=== PATIENT | female | born 1975 | race Caucasian/White ===

== ENCOUNTER → 2016-11-27 | Outpatient (CLI) | payer OTHER ==
--- NOTE | 2016-11-27 16:36 | US ---
EXAMINATION: Ultrasound-guided fine-needle aspiration of a subcutaneous scalp lesion. HISTORY: Cyst COMPARISON: None TECHNIQUE: The procedure, risks, and benefits were discussed with the patient. Informed consent was obtained. Within the region of concern there is an oval 1 x 0.5 cm immediately subcutaneous hypoecho ic nodule. This is heterogeneous in appearance and demonstrates posterior acoustic enhancement and l ikely represents a complex cyst. The overlying area was sterilely prepped with ChloraPrep. 1% lidoca ine was administered for local anesthesia. Using ultrasound guidance the nodule was attempted to be aspirated with an 18-gauge needle. No fluid was returned. Ultrasound-guided fine-needle aspiration w as performed obtaining 4 samples. These were fixed slight. The patient tolerated the procedure well. IMPRESSION: Successful ultrasound-guided fine-needle aspiration of a small scalp lesion, likely a co mplex cyst.
== END ==
LOC: MW.US 08:56
PROVIDERS: ATTEND Surgery
DX: R22.0 Localized swelling, mass and lump, head (principal); L72.9 Follicular cyst of the skin and subcutaneous tissue, unspecified
CPT/HCPCS: 10022; 76536-RT; 76942-26-RT; 76942-RT; 88173

== ENCOUNTER 2017-03-06 12:02 | Emergency (ER) | payer OTHER, MEDICARE ==
--- NOTE | 2017-03-06 12:45 | EDM.PDOC ---
ED HPI GENERAL MEDICAL PROBLEM - General Chief Complaint: Lower Extremity Injury/Pain Stated Complaint: PAIN IN LEFT LEG Time Seen by Provider: 03/06/17 12:40 Source of Information: Reports: Patient History Limitations: Reports: No Limitations - History of Present Illness INITIAL COMMENTS - FREE TEXT/NARRATIVE: HISTORY AND PHYSICAL: History of present illness: [Presents to the ER with complaints of Left upper anterior leg pain. She feels that the pain is just distal to the L inguinal fold. She was evaluated in the residency clinic yesterday at which time she had a hip and femur x-ray with normal results. Was told that a mass was palpated in her inguinal area and that a CT scan should be scheduled which has yet to be set up. Pain has been present for the past 6 weeks but has gradually worsened over the past 3 days. She comes to the emergency room for CT scan and reevaluation. She describes the pain as a sharp nerve nerve pain that moves down her inner thigh. No weakness to her legs , no new low back pain. No burning with urination or change in her bowels. Denies new abdominal pain. No genital or rectal lesions. She has a complicated history including colorectal cancer with metastasis. She follows regularly with Dr. Parisi and oncologist. ] Review of systems: As per history of present illness and below otherwise all systems reviewed and negative. Past medical history: As per history of present illness and as reviewed below otherwise noncontributory. Surgical history: As per history of present illness and as reviewed below otherwise noncontributory. Social history: No reported history of drug or alcohol abuse. Family history: As per history of present illness and as reviewed below otherwise noncontributory. Physical exam: HEENT: Atraumatic, normocephalic. Oral mucous members are pink and moist. Lungs: Clear to auscultation, breath sounds equal bilaterally. Power port present to left anterior chest. Heart: S1S2, regular rhythm. Abdomen: Soft, nondistended, nontender. Pelvis: Stable nontender. Genitourinary: Deferred. Rectal: Deferred. Skin: Erythematous yeast-like rash to left abdominal fold. No weeping. Extremities: Soft mass is palpated just distal to left inguinal fold. Difficult to differentiate if this is lymphadenopathy or other soft mass. Right inguinal area shows no masses or lymphadenopathy. Atraumatic, negative for cords or calf pain. Neurovascular unremarkable. Neuro: Awake, alert, oriented. Motor and sensory unremarkable throughout. Exam nonfocal. Psych: Pleasant, conversational. Diagnostics: [CT abdomen and pelvis w/ contrast] Therapeutics: [MS 2 mg IV x 2, morphine 4 mg IV] Impression: [Mass to left upper thigh Left upper leg pain] Plan: [The first dose of MS infiltrated through patient's port, and patient had no improvement of pain. A second dose was given through a peripheral IV site. Had a mild improvement in her pain and 4 mg of morphine was given IV. CT of her abdomen and pelvis shows no masses or lymphadenopathy to left inguinal area. CT shows new sclerotic bone lesion in T12 vertebral body and right ilium. Will treat her leg pain as musculoskeletal. She has Lyrica and pain medication at home. Will prescribe Flexeril which is sent to in to pharmacy. Rx for nystatin cream is also sent to [place] pharmacy. Follow-up with PCP early this week. Return precautions are discussed w/ patient. She is in agreement with today's plan. All of her questions are answered and concerns are addressed.] Definitive disposition and diagnosis as appropriate pending reevaluation and review of above. Left Leg Pain Score (Numeric/FACES): 7 - Related Data Allergies Allergy/AdvReac Type Severity Reaction Status Date / Time oxycodone HCl [From Percocet] Allergy Itching Verified 03/06/17 12:32 Home Meds: Home Meds LORazepam [Ativan] 1 mg PO DAILY 05/03/14 [History] traZODone 50 mg PO BEDTIME 05/03/14 [History] Omeprazole [Prilosec] 1 cap PO DAILY 01/24/15 [History] fentaNYL [Fentanyl] 100 mg TD ASDIRECTED 03/22/15 [History] Enalapril Maleate [Vasotec] 10 mg PO ASDIRECTED 02/06/16 [History] HYDROmorphone HCl [Dilaudid] 2 mg PO ASDIRECTED 02/06/16 [History] Cyclobenzaprine [Flexeril] 10 mg PO TID #30 tablet 03/06/17 [Rx] Nystatin [Nystatin Crm] 30 gm TOP TID #1 tube 03/06/17 [Rx] Pregabalin [Lyrica] 25 mg PO DAILY 03/06/17 [History] Past Medical History - Past Health History Medical/Surgical History: Denies Medical/Surgical History HEENT History: Reports: None Cardiovascular History: Reports: None Respiratory History: Reports: Other (See Below) Other Respiratory History: Stage 4 Lung Cancer with Metastasis to Lungs Gastrointestinal History: Reports: Other (See Below) Other Gastrointestinal History: Stage 4 Rectal Cancer Genitourinary History: Reports: None 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 yeast infection Musculoskeletal History: Reports: None Neurological History: Reports: None Psychiatric History: Reports: Depression Endocrine/Metabolic History: Reports: None Hematologic History: Reports: None Immunologic History: Reports: None Oncologic (Cancer) History: Reports: Colon, Lung Other Oncologic History: Stage 4 Rectal Cancer with metastasis to Lungs. Dermatologic History: Reports: None - Infectious Disease History Infectious Disease History: Reports: Chicken Pox - Past Surgical History Head Surgeries/Procedures: Reports: None HEENT Surgical History: Reports: None Cardiovascular Surgical History: Reports: None GI Surgical History: Reports: Other (See Below) Other GI Surgeries/Procedures: colorectal cancer Female Surgical History: Reports: None Endocrine Surgical History: Reports: None Neurological Surgical History: Reports: None Musculoskeletal Surgical History: Reports: None Dermatological Surgical History: Reports: None Social & Family History - Family History Family Medical History: Noncontributory - Tobacco Use Smoking Status *Q: Never Smoker Second Hand Smoke Exposure: No - Caffeine Use Caffeine Use: Reports: None - Alcohol Use Days Per Week of Alcohol Use: 0 - Recreational Drug Use Recreational Drug Use: No Review of Systems - Review of Systems Review Of Systems: ROS reveals no pertinent complaints other than HPI. ED EXAM, GENERAL - Physical Exam Exam: See Below Course - Vital Signs Last Recorded V/S: Last Vital Signs Temp 98.4 F 03/06/17 12:28 Pulse 132 H 03/06/17 17:20 Resp 18 03/06/17 17:20 BP 115/76 03/06/17 17:20 Pulse Ox 98 03/06/17 17:20 - Orders/Labs/Meds Orders: Active Orders 24 hr Category Date Time Status Abdomen Pelvis w Cont [CT] Stat Exams 03/06/17 13:01 Taken Meds: Medications Discontinued Medications Generic Name Dose Route Start Last Admin Trade Name Freq PRN Reason Stop Dose Admin Iopamidol 100 ml 03/06/17 15:08 03/06/17 15:09 Isovue-370 (76%) IVPUSH 03/06/17 15:09 100 ml ONETIME STA Administration Morphine Sulfate 2 mg 03/06/17 12:57 03/06/17 13:24 Morphine IVPUSH 03/06/17 12:58 2 mg ONETIME ONE Administration Morphine Sulfate 2 mg 03/06/17 13:45 03/06/17 14:43 Morphine IVPUSH 03/06/17 13:46 2 mg ONETIME ONE Administration Morphine Sulfate 4 mg 03/06/17 15:37 03/06/17 15:48 Morphine IVPUSH 03/06/17 15:38 4 mg ONETIME ONE Administration Departure - Departure Time of Disposition: 17:00 Disposition: Home, Self-Care 01 Condition: Good Clinical Impression: Leg pain, left - Discharge Information Prescriptions: Cyclobenzaprine [Flexeril] 10 mg PO TID #30 tablet Nystatin [Nystatin Crm] 30 gm TOP TID #1 tube Instructions: Neuropathic Pain Referrals: PCP,None [Primary Care Provider] - Forms: ED Department Discharge Additional Instructions: The following information is given to patients seen in the emergency department who are being discharged to home. This information is to outline your options for follow-up care. We provide all patients seen in our emergency department with a follow-up referral. The need for follow-up, as well as the timing and circumstances, are variable depending upon the specifics of your emergency department visit. If you don't have a primary care physician on staff, we will provide you with a referral. We always advise you to contact your personal physician following an emergency department visit to inform them of the circumstance of the visit and for follow-up with them and/or the need for any referrals to a consulting specialist. The emergency department will also refer you to a specialist when appropriate. This referral assures that you have the opportunity for follow-up care with a specialist. All of these measure are taken in an effort to provide you with optimal care, which includes your follow-up. Under all circumstances we always encourage you to contact your private physician who remains a resource for coordinating your care. When calling for follow-up care, please make the office aware that this follow-up is from your recent emergency room visit. If for any reason you are refused follow-up, please contact the [facility] emergency department at and asked to speak to the emergency department charge nurse. [facility] [address] [place] [id number] Follow-up with Dr. Parisi in the next 2-3 days. Take medications as prescribed. Return to ER as needed as discussed. - My Orders Last 24 Hours: My Active Orders 03/06/17 13:01 Abdomen Pelvis w Cont [CT] Stat - Assessment/Plan Last 24 Hours: My Active Orders 03/06/17 13:01 Abdomen Pelvis w Cont [CT] Stat
[2017-03-06] MEDS ORDERED: Morphine 2 MG/ML Syringe IVPUSH ONE ×3 (12:57→15:37)
[2017-03-06] MEDS ORDERED: Iopamidol 755 Mg/ML 100 ML Bottle IVPUSH STA (15:08)
[2017-03-06 19:17] VITALS: BP 115/76
--- NOTE | 2017-03-08 13:19 | CT ---
EXAM DATE: 03/06/17 PATIENT'S AGE: 41 Patient: WENDY SANCHEZ Facility: [place], [place] Site . Site : [id number] Study: CT Abdomen/Pelvis [id number]/29/2017 3:06:55 PM Ordering Physician: Doctor Blount Final Report: INDICATION: Left inguinal mass. History of colorectal cancer. Technique: Volumetric CT acquisition of the abdomen and pelvis following the administration of intravenous contrast. Multiplanar reconstruction. Comparison: CT abdomen and pelvis on 11/27/2016. Findings: Calcified granulomas in the lung parenchyma and calcified mediastinal lymph nodes stable since prior study. Low-attenuation right hilar nodes and adjacent atelectasis also stable since prior study. Multiple bilateral noncalcified pulmonary nodules are noted in the visible parenchyma.Many of the lesions have decreased in size since prior study. There is no pleural fluid. There is no abnormal pericardial fluid. Sclerotic/destructive process lesion in right ribs 6 and 7, left ribs 4 through 6, and the sternum are stable since prior study . New since prior study is a sclerotic lesion in the T12 vertebral body. The liver is normal in size. A cystic lesion in the lateral aspect of the liver stable since prior study. No new lesions are identified. No dilatation of the biliary system. The gallbladder is present. Stable splenomegaly. The pancreas is normal. Bilateral low-attenuation adrenal renal masses have decreased in size since prior study.The lesion on the left measures 1.9 centimeters x 1.3 centimeter as compared with 2.0 centimeters x 1.7 centimeters on the prior study. The lesion on the right currently measures 2.5 centimeters x 1.8 centimeters as compared with 2.7 centimeters x 1.9 centimeters on the prior study . Kidneys normal size, shape and position. Both kidneys are functioning. No renal masses or focal parenchymal abnormalities. No hydronephrosis. Ureters are normal in course and caliber. The abdominal aorta normal in caliber. No paraaortic or retrocrural lymphadenopathy. Normal bowel-gas pattern. Stable retrocardiac hiatal hernia. No inflammatory changes involving the bowel. The urinary bladder has a smooth contour. No free fluid in the abdomen and pelvis. Periosteal reaction in the right ilium is new since prior study. Masslike soft tissue density in the subcutaneous fat of the right ventral abdominal wall similar to prior study. Left inguinal mass is not identified. Impression : 1. Stable granulomatous changes in the chest. Stable right hilar atelectasis lymphadenopathy 2. Multiple bilateral noncalcified pulmonary nodules again noted. Several lesions have decreased in size since prior study. 3. Stable metastatic involvement of bilateral ribs and the sternum. 4. New sclerotic bone lesion in the T12 vertebral body and new periosteal reaction in the right ilium. 5. Stable splenomegaly. Stable cystic lesion in the liver. 6. Bilateral adrenal masses have decreased in size since prior study. 7. Stable soft tissue mass in the subcutaneous fat of the right ventral abdominal wall . 8. Stable hiatal hernia Please note that all CT scans at this facility use dose modulation, iterative reconstruction, and/or weight-based dosing when appropriate to reduce radiation dose to as low as reasonably achievable. Dictated by Wilbur Duckworth MD @ Mar 06 2017 3:20PM (Electronic Signature) Report Signed by Proxy. MTDD
== END 2017-03-06 17:20 | disposition home or self-care (01) ==
LOC: MW.ED 12:02
DX: M79.605 Pain in left leg (principal); R22.42 Localized swelling, mass and lump, left lower limb; C19 Malignant neoplasm of rectosigmoid junction; C78.02 Secondary malignant neoplasm of left lung; C78.01 Secondary malignant neoplasm of right lung; Z90.710 Acquired absence of both cervix and uterus; Z79.899 Other long term (current) drug therapy; Z88.6 Allergy status to analgesic agent
CPT/HCPCS: 74177; 96374; 96376; 99284; J2270; Q9967

== ENCOUNTER 2017-04-27 12:34 | Emergency (ER) | payer OTHER, MEDICARE ==
[2017-04-27] MEDS ORDERED: Sodium Chloride 0.9% 1,000 ML IV SCH ×2 (13:45→15:15)
[2017-04-27 14:35] LABS: CHLORIDE,CL 100 mmol/L (98-110); SODIUM,NA 135 mmol/L (136-146)
[2017-04-27] MEDS ORDERED: Albuterol/Ipratropium 3.0-0.5 MG/3 ML Neb Soln NEB ONE (15:01)
--- NOTE | 2017-04-27 15:13 | EDM.PDOC ---
ED HPI GENERAL MEDICAL PROBLEM - General Chief Complaint: Fever Stated Complaint: FEVER Time Seen by Provider: 04/27/17 13:08 Source of Information: Reports: Patient History Limitations: Reports: No Limitations - History of Present Illness INITIAL COMMENTS - FREE TEXT/NARRATIVE: HISTORY AND PHYSICAL: History of present illness: Patient is a 41-year-old female who presents to the emergency room today with complaints of fever, productive cough x 3 days. She reports her highest recorded temp yesterday was 100.8F. States she was in the hospital and saw her general surgeon, Dr. Dennis, who instructed her to be evaluated in the emergency room for his symptoms as she has a scheduled outpatient surgery tomorrow. Patient was to have subcutaneous "tumor" removed from her scalp. And has a past medical history of stage 4 metastatic lung cancer which she is currently awaiting trial treatments in [place]. 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 Review of systems: As per history of present illness and below otherwise all systems reviewed and negative. Past medical history: As per history of present illness and as reviewed below otherwise noncontributory. Surgical history: As per history of present illness and as reviewed below otherwise noncontributory. Social history: No reported history of drug or alcohol abuse. Family history: As per history of present illness and as reviewed below otherwise noncontributory. Physical exam: Gen.: Nontoxic-appearing 41-year-old female. Able to speak in full sentences without shortness of breath. Alert and oriented HEENT: Atraumatic, normocephalic, pupils reactive, negative for conjunctival pallor or scleral icterus, mucous membranes moist, throat clear, neck supple, nontender, trachea midline. Lungs: Diminished bases bilaterally, inspiratory wheezing in all lobes, chest nontender. Heart: S1S2, regular and rhythm. Tachycardia. Abdomen: Soft, nondistended, nontender. Negative for masses or hepatosplenomegaly. Negative for costovertebral tenderness. Pelvis: Stable nontender. Genitourinary: Deferred. Rectal: Deferred. Extremities: Atraumatic, negative for cords or calf pain. Neurovascular unremarkable. Neuro: Awake, alert, oriented. Cranial nerves II through XII unremarkable. Cerebellum unremarkable. Motor and sensory unremarkable throughout. Exam nonfocal. Discussed diagnostic findings with patient. These diagnositics and vital signs were reviewed by me and Dr. Berman. Patient states she feels "somewhat better" and is requesting to be discharged. I'm I am unable to find any source of infection, would like to place patient on a 5 day taper of prednisone. Instructed patient to continue to use Tylenol and/or ibuprofen for fever control. Follow up with her primary care provider in the next 1-2 days. Patient voiced understanding and is agreeable to plan of care. Denies any further questions. Diagnostics: CXR, CBC, CMP, Therapeutics: IV fluids, CXR, Duo neb Impression: Fever Plan: 1. Take medications as prescribed 2. Take Tylenol and/or ibuprofen as directed for fever and pain control. 3. Follow-up with your primary care provider in the next 1-2 days. Return to the ED as needed as discussed Definitive disposition and diagnosis as appropriate pending reevaluation and review of above. Onset Date: 04/24/17 Duration: Day(s): Generalized Pain Score (Numeric/FACES): 6 - Related Data Allergies Allergy/AdvReac Type Severity Reaction Status Date / Time oxycodone HCl [From Percocet] Allergy Itching Verified 04/27/17 13:17 Home Meds: Home Meds LORazepam [Ativan] 0.5 - 1 tab PO ASDIRECTED 05/03/14 [History] traZODone 100 mg PO BEDTIME 05/03/14 [History] Omeprazole [Prilosec] 20 mg PO DAILY 01/24/15 [History] HYDROmorphone HCl [Dilaudid] 2 mg PO ASDIRECTED PRN 02/06/16 [History] Cyclobenzaprine HCl 10 mg PO ASDIRECTED PRN 04/26/17 [History] Venlafaxine HCl [Venlafaxine HCl ER] 150 mg PO DAILY 04/26/17 [History] fentaNYL [Duragesic] 50 mcg TRDERM ASDIRECTED 04/26/17 [History] Past Medical History - Past Health History Medical/Surgical History: Denies Medical/Surgical History HEENT History: Reports: None Cardiovascular History: Reports: None Respiratory History: Reports: Other (See Below) Other Respiratory History: Stage 4 Lung Cancer with Metastasis to Lungs Gastrointestinal History: Reports: Other (See Below) Other Gastrointestinal History: Stage 4 Rectal Cancer Genitourinary History: Reports: None 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 yeast infection Musculoskeletal History: Reports: None Neurological History: Reports: None Psychiatric History: Reports: Depression Endocrine/Metabolic History: Reports: None Hematologic History: Reports: None Immunologic History: Reports: None Oncologic (Cancer) History: Reports: Colon, Lung Other Oncologic History: Stage 4 [place]-Rectal Cancer with metastasis to Lungs. Dermatologic History: Reports: None - Infectious Disease History Infectious Disease History: Reports: Chicken Pox - Past Surgical History Head Surgeries/Procedures: Reports: None Other HEENT Surgeries/Procedures: surgery on throat lympnode Respiratory Surgical History: Reports: None GI Surgical History: Reports: Other (See Below) Other GI Surgeries/Procedures: colostomy tube placed and removed; gastric tumor removed Female Surgical History: Reports: Hysterectomy Neurological Surgical History: Reports: None Oncologic Surgical History: Reports: Other (See Below) Other Oncologic Surgeries/Procedures: Colostomy with Illiostomy resection and repair Dermatological Surgical History: Reports: None Social & Family History - Family History Family Medical History: Noncontributory - Tobacco Use Smoking Status *Q: Never Smoker Second Hand Smoke Exposure: No - Caffeine Use Caffeine Use: Reports: Soda Caffeine Use Comment: 1drink/day - Alcohol Use Days Per Week of Alcohol Use: 0 - Recreational Drug Use Recreational Drug Use: No ED ROS GENERAL - Review of Systems Review Of Systems: ROS reveals no pertinent complaints other than HPI. ED EXAM, GENERAL - Physical Exam Exam: See Below Course - Vital Signs Last Recorded V/S: Last Vital Signs Temp 38.0 C 04/27/17 14:57 Pulse 125 H 04/27/17 15:29 Resp 18 04/27/17 15:29 BP 112/70 04/27/17 15:29 Pulse Ox 98 04/27/17 15:29 - Orders/Labs/Meds Orders: Active Orders 24 hr Category Date Time Status EKG 12 Lead [EKG Documentation Completion] [RC] STAT Care 04/27/17 15:50 Stop Req RT Aerosol Therapy [RC] ASDIRECTED Care 04/27/17 15:01 Active Sodium Chloride 0.9% [Normal Saline] 1,000 ml Med 04/27/17 13:45 Active IV ASDIRECTED Sodium Chloride 0.9% [Normal Saline] 1,000 ml Med 04/27/17 15:15 Active IV ASDIRECTED Medication Orders Sodium Chloride (Normal Saline) 1,000 mls @ 999 mls/hr IV ASDIRECTED REYNA Last Admin: 04/27/17 14:02 Dose: 999 mls/hr Sodium Chloride (Normal Saline) 1,000 mls @ 999 mls/hr IV ASDIRECTED REYNA Last Admin: 04/27/17 15:28 Dose: 999 mls/hr Labs: Laboratory Tests 04/27/17 04/27/17 Range/Units 14:05 14:05 WBC 4.92 (4.0-11.0) K/uL RBC 3.69 L (4.30-5.90) M/uL Hgb 11.5 L (12.0-16.0) g/dL Hct 34.7 L (36.0-46.0) % MCV 94.0 (80.0-98.0) fL MCH 31.2 (27.0-32.0) pg MCHC 33.1 (31.0-37.0) g/dL RDW Std Deviation 53.0 (28.0-62.0) fl RDW Coeff of Larry 15 (11.0-15.0) % Plt Count 164 (150-400) K/uL MPV 10.30 (7.40-12.00) fL Nucleated RBC % 0.0 /100WBC Nucleated RBCs # 0 K/uL Sodium 135 L (136-146) mmol/L Potassium 3.8 (3.5-5.1) mmol/L Chloride 100 (98-110) mmol/L Carbon Dioxide 24 (21-31) mmol/L BUN 9 (6.0-23.0) mg/dL Creatinine 0.7 (0.6-1.5) mg/dL Est Cr Clr Drug Dosing 77.50 mL/min Estimated GFR (MDRD) > 60.0 ml/min Glucose 94 (60-110) mg/dL Calcium 9.9 (8.8-10.8) mg/dL Total Bilirubin 1.4 (0.1-1.5) mg/dL AST 27 (5-40) IU/L ALT 20 (8-54) IU/L Alkaline Phosphatase 146 (40-150) Total Protein 7.6 (6.0-8.0) g/dL Albumin 3.8 (3.5-5.0) g/dL Globulin 3.8 H (2.0-3.5) g/dL Albumin/Globulin Ratio 1.0 L (1.3-2.8) Meds: Medications Generic Name Dose Route Start Last Admin Trade Name Freq PRN Reason Stop Dose Admin Sodium Chloride 1,000 mls @ 999 mls/hr 04/27/17 13:45 04/27/17 14:02 Normal Saline IV 999 mls/hr ASDIRECTED REYNA Administration Sodium Chloride 1,000 mls @ 999 mls/hr 04/27/17 15:15 04/27/17 15:28 Normal Saline IV 999 mls/hr ASDIRECTED REYNA Administration Discontinued Medications Generic Name Dose Route Start Last Admin Trade Name Freq PRN Reason Stop Dose Admin Acetaminophen 1,000 mg 04/27/17 15:50 Tylenol Extra Strength PO 04/27/17 15:51 ONETIME ONE Albuterol/Ipratropium 3 ml 04/27/17 15:01 04/27/17 15:40 Duoneb 3.0-0.5 Mg/3 Ml NEB 04/27/17 15:02 3 ml ONETIME ONE Administration Departure - Departure Time of Disposition: 15:59 Disposition: Home, Self-Care 01 Condition: Good Clinical Impression: Fever Qualifiers: Fever type: unspecified Qualified Code(s): R50.9 - Fever, unspecified - Discharge Information Referrals: Jeffery Parisi MD [Primary Care Provider] - Forms: ED Department Discharge Additional Instructions: My general discharge The following information is given to patients seen in the emergency department who are being discharged to home. This information is to outline your options for follow-up care. We provide all patients seen in our emergency department with a follow-up referral. The need for follow-up, as well as the timing and circumstances, are variable depending upon the specifics of your emergency department visit. If you don't have a primary care physician on staff, we will provide you with a referral. We always advise you to contact your personal physician following an emergency department visit to inform them of the circumstance of the visit and for follow-up with them and/or the need for any referrals to a consulting specialist. The emergency department will also refer you to a specialist when appropriate. This referral assures that you have the opportunity for follow-up care with a specialist. All of these measure are taken in an effort to provide you with optimal care, which includes your follow-up. Under all circumstances we always encourage you to contact your private physician who remains a resource for coordinating your care. When calling for follow-up care, please make the office aware that this follow-up is from your recent emergency room visit. If for any reason you are refused follow-up, please contact the [facility] Emergency Department at and asked to speak to the emergency department charge nurse. [facility] [address] [place] [id number] 1. Take medications as prescribed 2. Take Tylenol and/or ibuprofen as directed for fever and pain control. 3. Follow-up with your primary care provider in the next 1-2 days. Return to the ED as needed as discussed - My Orders Last 24 Hours: My Active Orders 04/27/17 13:45 Sodium Chloride 0.9% [Normal Saline] 1,000 ml IV ASDIRECTED 04/27/17 15:01 RT Aerosol Therapy [RC] ASDIRECTED 04/27/17 15:15 Sodium Chloride 0.9% [Normal Saline] 1,000 ml IV ASDIRECTED 04/27/17 15:50 EKG 12 Lead [EKG Documentation Completion] [RC] STAT - Assessment/Plan Last 24 Hours: My Active Orders 04/27/17 13:45 Sodium Chloride 0.9% [Normal Saline] 1,000 ml IV ASDIRECTED 04/27/17 15:01 RT Aerosol Therapy [RC] ASDIRECTED 04/27/17 15:15 Sodium Chloride 0.9% [Normal Saline] 1,000 ml IV ASDIRECTED 04/27/17 15:50 EKG 12 Lead [EKG Documentation Completion] [RC] STAT
--- NOTE | 2017-04-27 15:33 | CR ---
EXAMINATION: Two-view chest (PA and Lateral views). HISTORY: Stage IV cancer. Cough Comparison dated 09/10/2016. FINDINGS: The trachea is midline. The cardiomediastinal silhouette is stable. There is a left-sided michael eusebia ter noted. Small pulmonary opacities are again noted, grossly unchanged. Mild increased interstitial prominence. Left medial lung base opacity noted, possibly related to the previously demonstrated hiat al hernia. Osseous structures appear unremarkable. IMPRESSION: 1. Grossly stable bilateral pulmonary opacities without a definite acute cardiopulmonary finding.
[2017-04-27] MEDS ORDERED: Acetaminophen 500 MG Tab PO ONE (15:50)
[2017-04-27 16:18] VITALS: BP 105/56
[2017-04-27] MEDS ORDERED: Iopamidol 755 MG/ML 50 ML Bottle IV ONE (16:32)
--- NOTE | 2017-04-28 10:38 | CT ---
EXAM DATE: 04/27/17 PATIENT'S AGE: 41 Patient: WENDY SANCHEZ Facility: [place], [place] Site . Site : [id number] Study: CT Chest Angio [id number] 5:04:22 PM Ordering Physician: Doctor Blount Final Report: INDICATION: Persistent tachycardia. History of colorectal cancer noted on recent CT dated . TECHNIQUE : CT scan of the chest. CTA PE protocol. IV contrast. IV Contrast: Isovue 370 100 mL Please note that all CT scans at this facility use dose modulation, iterative reconstruction and/or weight-based dosing when appropriate to reduce radiation dose to as low as reasonably achievable(ALARA). COMPARISON: None. 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 Visualized bowel gas pattern nonobstructive. Pulmonary Arteries: No focal pulmonary artery filling defects. Proximal lobar branches in the right hemithorax are narrowed due to extensive mediastinal and hilar lymphadenopathy. Thoracic Aorta: Thoracic aorta is normal in caliber. No dissection. Heart and Mediastinum: Extensive lymphadenopathy, predominating in the right hilar region with narrowing of the lobar branches of the right upper lobe, right middle lobe, and right lower lobe pulmonary arteries. Enlarged subcarinal lymphadenopathy. Lungs and Pleura: Multiple pulmonary nodules in the bilateral upper and lower lobes, compatible with metastatic disease. Possible superimposed opacification in the right upper lobe with cavitary changes, series 402, image 19. Additional cavitary nodule on series 42, image 25. Small right pleural effusion. No pneumothorax. Chest Wall and Soft Tissues: Left anterior chest wall Port-A-Cath. Indeterminate soft tissue nodule in the posterior thorax on series 401, image 216. Thyroid Gland: Within normal limits. Upper Abdomen: Large hiatal hernia. Spleen is enlarged. Bones: Osseous metastases involving the sternum and right ribs, series 403, image 55. IMPRESSION: 1. No acute pulmonary embolism. 2. Numerous pulmonary metastases with extensive hilar and mediastinal lymphadenopathy, causing mass effect on right upper lobe, right middle lobe, and right lower lobe lobar pulmonary branches. 3. Small right pleural effusion. 4. Osseous metastases, involving the sternum and right ribs. Possible posterior lower left rib osseous metastasis noted on series 43, image 75. Dictated by Jacob Silvestre MD @ 04/27/2017 5:28:06 PM Dictated by: Jacob Silvestre MD @ 04/27/2017 17:28:11 (Electronic Signature) Report Signed by Proxy. MTDD
== END 2017-04-27 17:43 | disposition home or self-care (01) ==
LOC: MW.ED 12:34
DX: R50.9 Fever, unspecified (principal); C78.00 Secondary malignant neoplasm of unspecified lung; C18.9 Malignant neoplasm of colon, unspecified; F32.9 Major depressive disorder, single episode, unspecified; Z90.710 Acquired absence of both cervix and uterus; Z85.038 Personal history of other malignant neoplasm of large intestine; Z98.890 Other specified postprocedural states; Z79.899 Other long term (current) drug therapy; Z88.6 Allergy status to analgesic agent
CPT/HCPCS: 36415; 71020; 71275; 80053; 85027; 94664; 96360; 96361; 99285; A9270; J7040; Q9967; 99283

== ENCOUNTER 2017-05-03 06:47 | Day surgery (SDC) | payer OTHER, MEDICARE ==
[~2017-05-03 06:47] MED LIST: Lactated Ringers 1,000 ML IV SCH; ceFAZolin 2 GM in Premix Bag 1 BAG IV ONE; fentaNYL 100 MCG/2 ML SDV ONE
[2017-05-03] MEDS ORDERED: Lidocaine 2% 5 ML SDV ONE (07:20)
[2017-05-03] MEDS ORDERED: Ondansetron 4 MG/2 ML SDV ONE (07:20)
[2017-05-03] MEDS ORDERED: Midazolam 1 MG/ML 2 ML SDV ONE (07:21)
[2017-05-03] MEDS ORDERED: Propofol 200 MG/20 ML SDV ONE (07:21)
[2017-05-03] MEDS ORDERED: Bupivacaine 0.5% 30 ML SDV ONE ×2 (07:22→07:23)
[2017-05-03] MEDS ORDERED: Lidocaine 1% 20 ML MDV ONE (07:23)
[2017-05-03] MEDS ORDERED: Water For Injection, Sterile 20 ML ONE (07:23)
[2017-05-03] MEDS ORDERED: Scopolamine 1.5 MG Transdermal Patch TRDERM PRN (07:31)
--- NOTE | 2017-05-03 07:35 | PCM.PREANE ---
Preanesthetic Assessment - Anesthesia/Transfusion/Family Hx Anesthesia History: Prior Anesthesia Without Reaction Family History of Anesthesia Reaction: No Transfusion History: Prior Transfusion Without Reaction Intubation History: Unknown - Review of Systems General: No Symptoms Pulmonary: No Symptoms Cardiovascular: No Symptoms Gastrointestinal: No Symptoms Neurological: No Symptoms Other: Reports: None - Physical Assessment O2 Sat by Pulse Oximetry: 93 Respiratory Rate: 16 Vital Signs: Last Vital Signs Temp 36.7 C 05/03/17 07:20 Pulse 108 H 05/03/17 07:20 Resp 16 05/03/17 07:20 BP 104/73 05/03/17 07:20 Pulse Ox 93 L 05/03/17 07:20 Height: 1.52 m Weight: 81.647 kg ASA Class: 3 Mental Status: Alert & Oriented x3 Airway Class: Mallampati = 2 Dentition: Reports: Normal Dentition Thyro-Mental Finger Breadths: 3 Mouth Opening Finger Breadths: 3 ROM/Head Extension: Full Lungs: Clear to Auscultation, Normal Respiratory Effort Cardiovascular: Regular Rate, Regular Rhythm - Allergies Allergies/Adverse Reactions: Allergies Allergy/AdvReac Type Severity Reaction Status Date / Time oxycodone HCl [From Percocet] Allergy Itching Verified 04/27/17 13:17 - Blood Blood Available: No - Anesthesia Plan Pre-Op Medication Ordered: None - Acknowledgements Anesthesia Type Planned: General Anesthesia Pt an Appropriate Candidate for the Planned Anesthesia: Yes Alternatives and Risks of Anesthesia Discussed w Pt/Guardian: Yes Pt/Guardian Understands and Agrees with Anesthesia Plan: Yes PreAnesthesia Questionnaire - Past Health History Medical/Surgical History: Denies Medical/Surgical History HEENT History: Reports: None Other HEENT History: wears glasses/contacts Cardiovascular History: Reports: Hypertension Other Cardiovascular History: states has hx of blood clot to arm in 2011 Respiratory History: Reports: SOB Other Respiratory History: SOB with exertion (lung mets), h/o phrenic nerve paralysis Gastrointestinal History: Reports: GERD Other Gastrointestinal History: hx of rectal cancer with mets (received chemo and radiation therapy this year) Genitourinary History: Reports: None 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 yeast infection Other Musculoskeletal History: tumor on T12 which causes back pain ( fentanyl patch 50, dilauded 1-2 tbl per day amd norco 1-2 tbl per day) Neurological History: Reports: None Psychiatric History: Reports: Anxiety Endocrine/Metabolic History: Reports: None Hematologic History: Reports: Blood Transfusion(s) Other Hematologic History: superficial blood clot in arm Immunologic History: Reports: None Oncologic (Cancer) History: Reports: Other (See Below) Other Oncologic History: rectal with mets to bones (sternum, ribs), lungs, soft tissue, lymph nodes Dermatologic History: Reports: None - Infectious Disease History Infectious Disease History: Reports: Chicken Pox - Past Surgical History GI Surgical History: Reports: Bariatric Procedure (band with bend removal), Colon Other GI Surgeries/Procedures: Lap Band surgery (later removed), Partial Colectomy with colostomy and colostomy removal, ileostomy with ileostomy removal Female Surgical History: Reports: Hysterectomy Other Surgical History Comment: port-a-cath placement - SUBSTANCE USE Smoking Status *Q: Never Smoker Second Hand Smoke Exposure: No Days Per Week of Alcohol Use: 0 Recreational Drug Use History: No - HOME MEDS Home Medications: Home Meds LORazepam [Ativan] 0.5 - 1 tab PO ASDIRECTED 05/03/14 [History] traZODone 100 mg PO BEDTIME 05/03/14 [History] Omeprazole [Prilosec] 20 mg PO DAILY 01/24/15 [History] HYDROmorphone HCl [Dilaudid] 2 mg PO ASDIRECTED PRN 02/06/16 [History] Cyclobenzaprine HCl 10 mg PO ASDIRECTED PRN 04/26/17 [History] Venlafaxine HCl [Venlafaxine HCl ER] 150 mg PO DAILY 04/26/17 [History] fentaNYL [Duragesic] 50 mcg TRDERM ASDIRECTED 04/26/17 [History] Pregabalin [Lyrica] 50 mg PO BID 04/28/17 [History] - CURRENT (IN HOUSE) MEDS Current Meds: Current Medications Lactated Ringer's (Ringers, Lactated) 1,000 mls @ 125 mls/hr IV ASDIRECTED REYNA Last Admin: 05/03/17 07:17 Dose: 125 mls/hr Discontinued Medications Fentanyl (Sublimaze) Confirm Administered Dose 100 mcg .ROUTE .STK-MED ONE Stop: 04/30/17 15:53 Cefazolin Sodium/Dextrose 2 gm (/ Premix) 50 mls @ 100 mls/hr IV ONETIME ONE Stop: 04/30/17 18:07 Sufentanil Citrate (Sufentanil Citrate) Confirm Administered Dose 1 mls @ as directed .ROUTE .STK-MED ONE Stop: 05/03/17 07:17 Lidocaine (Xylocaine-Mpf 2%) Confirm Administered Dose 5 ml .ROUTE .STK-MED ONE Stop: 05/03/17 07:21 Midazolam HCl (Versed 1 Mg/Ml) Confirm Administered Dose 4 mg .ROUTE .STK-MED ONE Stop: 05/03/17 07:22 Ondansetron HCl (Zofran) Confirm Administered Dose 4 mg .ROUTE .STK-MED ONE Stop: 05/03/17 07:21 Propofol (Diprivan 20 Ml) Confirm Administered Dose 200 mg .ROUTE .STK-MED ONE Stop: 05/03/17 07:22
[2017-05-03] MEDS ORDERED: ceFAZolin 1 GM Vial ONE (07:46)
[2017-05-03] MEDS ORDERED: Bacitracin Oint 28.35 GM Tube ONE (09:15)
--- NOTE | 2017-05-03 10:15 | PCM.POSTAN ---
POST ANESTHESIA ASSESSMENT - MENTAL STATUS Mental Status: Alert, Oriented - RESPIRATORY Respiratory Status: Respiratory Rate WNL, Airway Patent, O2 Saturation Stable, Supplemental Oxygen - CARDIOVASCULAR CV Status: Pulse Rate WNL, Blood Pressure Stable, Elevated Pulse Rate (normal for pt - 110's) - GASTROINTESTINAL GI Status: No Symptoms - PAIN Pain Score: 2 (comfortable at this time) - POST OP HYDRATION Hydration Status: Adequate & Stable - OBSERVATIONS Free Text/Narrative:: Pt stable post op with pain well controlled and no nausea at this time.
--- NOTE | 2017-05-03 10:22 | PCM.OPNOTE ---
- General Post-Op/Procedure Note Date of Surgery/Procedure: 05/03/17 Operative Procedure(s): Scalp lesion removal x 3 Findings: 3 x 2 x 1 cm lesion on right lateral scalp, 2 x 2 x 1 cm lesion on left lateral scalp, 1.5 x 1 x 1 cm posterior scalp lesion Pre Op Diagnosis: Metastatic rectal cancer to scalp Post-Op Diagnosis: same Anesthesia Technique: General LMA Primary Surgeon: Bree Ceballos Fluid Replacement, Intraop: 1,500 EBL in mLs: 75 Condition: Good
[2017-05-03] MEDS ORDERED: Cyclobenzaprine 10 MG Tab PO ONE (10:53)
[2017-05-03] MEDS ORDERED: HYDROmorphone 2 MG Tab PO PRN (10:53)
[2017-05-03 14:02] VITALS: BP 96/73
--- NOTE | 2017-05-03 17:45 | OR ---
SURGEON: CESAR NICHOLSON MD DATE OF PROCEDURE: 05/03/2017 PREOPERATIVE DIAGNOSES: Metastatic rectal cancer and lesions of the scalp x4. POSTOPERATIVE DIAGNOSES: Metastatic rectal cancer and lesions of the scalp x4. PROCEDURE PERFORMED: Excision of scalp lesion x3. ANESTHESIA: General LMA. FLUIDS: 1500 mL crystalloid. ESTIMATED BLOOD LOSS: 75 mL. FINDINGS: 1. A 3 x 2 x 1 cm lesion on the right lateral scalp. 2. A 2 x 2 x 1 cm lesion on the left lateral scalp. 3. A 1.5 x 1 x 1 cm posterior scalp lesion. COMPLICATIONS: None. INDICATIONS: The patient is a 41-year-old female with metastatic rectal adenocarcinoma. Several months ago, the patient developed a lesion on her scalp that was biopsied and found to be a metastatic lesion. Since then, the patient has developed several large lesions that are quite painful and make it difficult for the patient to even touch her scalp. These lesions have grown in size substantially and the patient desires to have them removed. The patient discussed this with her medical oncologist who agreed with excising these as a palliative procedure. The patient and I discussed excising these lesions. We discussed the risks, including bleeding, infection, damage to surrounding structures, and nonhealing due to the malignant nature of the disease. The patient verbalized understanding and wishes to proceed. PROCEDURE IN DETAIL: The patient was brought to the operating room suite and placed on the OR table in supine position. A time-out was completed verifying the patient's name, age, date of , allergies, and procedure to be performed. General LMA anesthesia was induced. The patient's head was then turned sharply to the left which allowed adequate exposure of the posterior scalp lesion and left scalp lesion. The hair around the lesion was clipped using an iris scissors and the area prepped and draped. 1% lidocaine plain was used to anesthetize the area around the posterior scalp lesion. This lesion was small and an elliptical incision was made along the skin lines to encompass the mass. Cautery was used to dissect down to the subcutaneous fat and undermine the lesion. The lesion was found to be 1.5 x 1 x 1 cm. I sent it to pathology labeled as posterior scalp lesion. Cautery was used to obtain hemostasis and the wound was closed with 2-0 Prolene in an interrupted fashion. Attention was then turned to the larger left lateral scalp lesion. This area was anesthetized with 1% lidocaine plain. A large elliptical incision was made around the mass along the skin lines. Cautery was used to dissect down to the subcutaneous fat and undermine the lesion. A large blood vessel supplying this lesion was encountered. I attempted to control the bleeding with using cautery but was unable to do so. A small clip assembler surgical garment was brought in and the vessel clipped. This allowed adequate hemostasis in the wound. The left lateral scalp lesion measured 2 x 2 x 1 cm in size and was sent to pathology labeled as left lateral scalp lesion. Cautery and Surgicel were used to achieve hemostasis. The wound was then closed with no undue tension using a running locking 2-0 Prolene. Dressings were applied and the drapes taken down. Her head was turned sharply to the right and I turned my attention to the right lateral and anterior scalp lesions. The hair around these was clipped. The anterior scalp lesion was located along the frontal scalp line and in a medial position. This was located very close to the face. This area was clipped found to be larger than originally anticipated. Given its close proximity to the face and the fact that the lesion was already under a large amount of tension, a decision was made not to attempt any excision of this lesion today. I prepped and draped the right lateral scalp lesion. The area around the lesion was anesthetized with 1% lidocaine plain. A large elliptical incision was made using a 15 blade around the mass along the skin lines. Using cautery, I then dissected down through the subcutaneous tissues. The mass extended all the way down to the temporalis fascia. I undermined the lesion taking it off the temporalis. It did not appear to invade the muscle itself. The lesion measured 3 x 2 x 1 cm in size. I attempted to close the defect primarily, however, was unable to do so without tension. I undermined the superior and inferior skin flaps to allow the skin to come together adequately. There was still some tension, so I extended my incisions to allow better mobilization. This allowed the lesion to be closed with minimal tension. The lesion was closed with a running locking 2-0 Prolene. I then washed the patient's hair was normal saline. I applied bacitracin and Telfa to all three wounds. The head was then wrapped in Kerlix gauze and a net stocking placed over the top to secure everything in place. The patient tolerated this procedure well, was taken to PACU in stable condition. DADA DEL REAL /[id number] MTDD
== END 2017-05-03 13:03 | disposition home or self-care (01) ==
LOC: MW.SDS 06:47
PROVIDERS: ATTEND Surgery
DX: C79.2 Secondary malignant neoplasm of skin (principal); C19 Malignant neoplasm of rectosigmoid junction; K21.9 Gastro-esophageal reflux disease without esophagitis; F41.9 Anxiety disorder, unspecified; G89.3 Neoplasm related pain (acute) (chronic); F32.9 Major depressive disorder, single episode, unspecified; I10 Essential (primary) hypertension; C78.00 Secondary malignant neoplasm of unspecified lung; G58.8 Other specified mononeuropathies; F43.21 Adjustment disorder with depressed mood; Z92.3 Personal history of irradiation; Z92.21 Personal history of antineoplastic chemotherapy; Z88.5 Allergy status to narcotic agent; Z98.84 Bariatric surgery status; Z90.710 Acquired absence of both cervix and uterus; Z90.49 Acquired absence of other specified parts of digestive tract; Z79.899 Other long term (current) drug therapy
CPT/HCPCS: 11622; 11623; A9270; J0690; J2250; J2405; J7120; 00300; 88305; J2704

== ENCOUNTER 2017-06-29 08:24 | Observation (INO) | payer OTHER, MEDICARE ==
--- NOTE | 2017-06-29 08:27 | EDM.PDOC ---
ED HPI GENERAL MEDICAL PROBLEM - General Stated Complaint: NOT TALKING CLEARLY Time Seen by Provider: 06/29/17 08:26 Source of Information: Reports: Patient - History of Present Illness INITIAL COMMENTS - FREE TEXT/NARRATIVE: HISTORY AND PHYSICAL: History of present illness: [Vision with history of colorectal cancer with widespread metastasis presents via EMS with generalized weakness by private vehicle somewhat altered mental status ] Review of systems: As per history of present illness and below otherwise all systems reviewed and negative. Past medical history: As per history of present illness and as reviewed below otherwise noncontributory. Surgical history: As per history of present illness and as reviewed below otherwise noncontributory. Social history: No reported history of drug or alcohol abuse. Family history: As per history of present illness and as reviewed below otherwise noncontributory. Physical exam: HEENT: Atraumatic, normocephalic, pupils reactive, negative for conjunctival pallor or scleral icterus, mucous membranes moist, throat clear, neck supple, nontender, trachea midline. Lungs: Clear to auscultation, breath sounds equal bilaterally, chest nontender. Heart: S1S2, regular, negative for clicks, rubs, or JVD. Abdomen: Soft, nondistended, nontender. Negative for masses or hepatosplenomegaly. Negative for costovertebral tenderness. Pelvis: Stable nontender. Genitourinary: Deferred. Rectal: Deferred. Extremities: Atraumatic, negative for cords or calf pain. Neurovascular unremarkable. Neuro: Awake, alert, oriented. Cranial nerves II through XII unremarkable. Cerebellum unremarkable. Motor and sensory unremarkable throughout. Exam nonfocal. Diagnostics: []CBC CMP UA blood cultures Chest 1 view Abdomen pelvis flat and upright Therapeutics: []1 L normal saline bolus Zosyn 3.375 g IV Vancomycin 1 g IV now Ativan 0.5 mg IV Valium 5 mg IV Initial transfer to [place] was initiated with [facility], in the interim hospice was consult and and prior to transfer hospice treatment was preferred by family and family and her primary care provider have agreed to go forward with hospice care rather than continue a code 1 status. A code 3 status was established we will be getting a hospice bed ready for her and moving to the floor under Augustine Wen Impression: Hypoxia Hypotension Leukocytosis Infiltrates on chest x-ray with known metastatic disease to chest Hyponatremia Intractable pain Generalized weakness []History of colorectal cancer stage IV with widespread disease Definitive disposition and diagnosis as appropriate pending reevaluation and review of above. Generalized Pain Score (Numeric/FACES): 5 - Related Data Allergies Allergy/AdvReac Type Severity Reaction Status Date / Time oxycodone HCl [From Percocet] Allergy Itching Verified 04/27/17 13:17 Home Meds: Home Meds Cyclobenzaprine HCl 10 mg PO BEDTIME 06/29/17 [History] Dexamethasone 4 mg PO BID 06/29/17 [History] HYDROmorphone [Dilaudid] 4 mg PO Q4H 06/29/17 [History] LORazepam 1 mg PO TID 06/29/17 [History] Omeprazole 20 mg PO DAILY 06/29/17 [History] Regorafenib [Stivarga] 40 mg PO DAILY 06/29/17 [History] Venlafaxine [Venlafaxine HCl ER] 150 mg PO DAILY 06/29/17 [History] fentaNYL [Fentanyl] 1 each TD ASDIRECTED 06/29/17 [History] traZODone HCl [Trazodone HCl] 100 mg PO BEDTIME 06/29/17 [History] Past Medical History - Past Health History Medical/Surgical History: Denies Medical/Surgical History HEENT History: Reports: None Other HEENT History: wears glasses/contacts Cardiovascular History: Reports: Hypertension Other Cardiovascular History: states has hx of blood clot to arm in 2011 Respiratory History: Reports: SOB Other Respiratory History: SOB with exertion (lung mets), h/o phrenic nerve paralysis Gastrointestinal History: Reports: GERD Other Gastrointestinal History: hx of rectal cancer with mets (received chemo and radiation therapy this year) Genitourinary History: Reports: None 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 yeast infection Musculoskeletal History: Reports: None Other Musculoskeletal History: tumor on T12 which causes back pain ( fentanyl patch 50, dilauded 1-2 tbl per day amd norco 1-2 tbl per day) Neurological History: Reports: None Psychiatric History: Reports: Anxiety Endocrine/Metabolic History: Reports: None Hematologic History: Reports: Blood Transfusion(s) Other Hematologic History: superficial blood clot in arm Immunologic History: Reports: None Oncologic (Cancer) History: Reports: Other (See Below) Other Oncologic History: rectal with mets to bones (sternum, ribs), lungs, soft tissue, lymph nodes Dermatologic History: Reports: None - Infectious Disease History Infectious Disease History: Reports: Chicken Pox - Past Surgical History Other GI Surgeries/Procedures: Lap Band surgery (later removed), Partial Colectomy with colostomy and colostomy removal, ileostomy with ileostomy removal Other Surgical History Comment: port-a-cath placement Social & Family History - Family History Family Medical History: Noncontributory - Tobacco Use Smoking Status *Q: Never Smoker Second Hand Smoke Exposure: No - Caffeine Use Caffeine Use: Reports: Soda Caffeine Use Comment: 1drink/day - Alcohol Use Days Per Week of Alcohol Use: 0 - Recreational Drug Use Recreational Drug Use: No Drug Use in Last 12 Months: No ED ROS GENERAL - Review of Systems Review Of Systems: ROS reveals no pertinent complaints other than HPI. ED EXAM, GENERAL - Physical Exam Exam: See Below Course - Vital Signs Last Recorded V/S: Last Vital Signs Temp 97.1 F 06/29/17 09:28 Pulse 110 H 06/29/17 10:42 Resp 24 H 06/29/17 10:42 BP 89/62 L 06/29/17 10:42 Pulse Ox 100 06/29/17 10:42 - Orders/Labs/Meds Orders: Active Orders 24 hr Category Date Time Status RT Aerosol Therapy [RC] ASDIRECTED Care 06/29/17 09:06 Active CULTURE BLOOD [BC] Stat Lab 06/29/17 09:05 Received CULTURE BLOOD [BC] Stat Lab 06/29/17 09:18 Received UA W/MICROSCOPIC [URIN] Stat Lab 06/29/17 08:26 Uncollected Sodium Chloride 0.9% [Normal Saline] 1,000 ml Med 06/29/17 08:30 Active IV STAT Blood Culture x2 Reflex Set [OM.PC] Stat Oth 06/29/17 08:51 Ordered Medication Orders Sodium Chloride (Normal Saline) 1,000 mls @ 125 mls/hr IV STAT REYNA Last Admin: 06/29/17 09:00 Dose: 125 mls/hr Labs: Laboratory Tests 06/29/17 06/29/17 06/29/17 Range/Units 08:50 08:50 08:58 WBC 15.40 H (4.0-11.0) K/uL RBC 4.64 (4.30-5.90) M/uL Hgb 13.5 (12.0-16.0) g/dL Hct 41.3 (36.0-46.0) % MCV 89.0 (80.0-98.0) fL MCH 29.1 (27.0-32.0) pg MCHC 32.7 (31.0-37.0) g/dL RDW Std Deviation 65.1 H (28.0-62.0) fl RDW Coeff of Larry 22 H (11.0-15.0) % Plt Count 152 (150-400) K/uL MPV 10.40 (7.40-12.00) fL Neut % (Auto) FLOORHAND Lymph % (Auto) FLOORHAND [place] % (Auto) FLOORHAND Eos % (Auto) FLOORHAND Baso % (Auto) FLOORHAND Neut # (Auto) FLOORHAND Lymph # (Auto) FLOORHAND [place] # (Auto) FLOORHAND Eos # (Auto) FLOORHAND Baso # (Auto) FLOORHAND Add Manual Diff YES Neutrophils % (Manual) 80 (48.0-80.0) % Band Neutrophils % 13 % Lymphocytes % (Manual) 5 L (16.0-40.0) % Monocytes % (Manual) 2 (0.0-15.0) % Nucleated RBC % 0.0 /100WBC Absolute Seg Neuts 12.3 H (1.4-5.7) Band Neutrophils # 2.0 Lymphocytes # (Manual) 0.8 (0.6-2.4) Monocytes # (Manual) 0.3 (0.0-0.8) Nucleated RBCs # 0 K/uL Lactate (0.20-2.00) mmol/L Sodium 128 L (136-146) mmol/L Potassium 3.3 L (3.5-5.1) mmol/L Chloride 88 L (98-110) mmol/L Carbon Dioxide 22 (21-31) mmol/L BUN 30 H (6.0-23.0) mg/dL Creatinine 1.0 (0.6-1.5) mg/dL Est Cr Clr Drug Dosing TNP Estimated GFR (MDRD) > 60.0 ml/min Glucose 101 (60-110) mg/dL POC Glucose 109 (60-110) mg/dL Calcium 7.7 L (8.8-10.8) mg/dL Total Bilirubin 1.1 (0.1-1.5) mg/dL AST 78 H (5-40) IU/L ALT 157 H (8-54) IU/L Alkaline Phosphatase 295 H (40-150) Total Protein 4.9 L (6.0-8.0) g/dL Albumin 2.2 L (3.5-5.0) g/dL Globulin 2.7 (2.0-3.5) g/dL Albumin/Globulin Ratio 0.8 L (1.3-2.8) 06/29/17 Range/Units 09:18 WBC (4.0-11.0) K/uL RBC (4.30-5.90) M/uL Hgb (12.0-16.0) g/dL Hct (36.0-46.0) % MCV (80.0-98.0) fL MCH (27.0-32.0) pg MCHC (31.0-37.0) g/dL RDW Std Deviation (28.0-62.0) fl RDW Coeff of Larry (11.0-15.0) % Plt Count (150-400) K/uL MPV (7.40-12.00) fL Neut % (Auto) Lymph % (Auto) [place] % (Auto) Eos % (Auto) Baso % (Auto) Neut # (Auto) Lymph # (Auto) [place] # (Auto) Eos # (Auto) Baso # (Auto) Add Manual Diff Neutrophils % (Manual) (48.0-80.0) % Band Neutrophils % % Lymphocytes % (Manual) (16.0-40.0) % Monocytes % (Manual) (0.0-15.0) % Nucleated RBC % /100WBC Absolute Seg Neuts (1.4-5.7) Band Neutrophils # Lymphocytes # (Manual) (0.6-2.4) Monocytes # (Manual) (0.0-0.8) Nucleated RBCs # K/uL Lactate 6.6 H (0.20-2.00) mmol/L Sodium (136-146) mmol/L Potassium (3.5-5.1) mmol/L Chloride (98-110) mmol/L Carbon Dioxide (21-31) mmol/L BUN (6.0-23.0) mg/dL Creatinine (0.6-1.5) mg/dL Est Cr Clr Drug Dosing Estimated GFR (MDRD) ml/min Glucose (60-110) mg/dL POC Glucose (60-110) mg/dL Calcium (8.8-10.8) mg/dL Total Bilirubin (0.1-1.5) mg/dL AST (5-40) IU/L ALT (8-54) IU/L Alkaline Phosphatase (40-150) Total Protein (6.0-8.0) g/dL Albumin (3.5-5.0) g/dL Globulin (2.0-3.5) g/dL Albumin/Globulin Ratio (1.3-2.8) Meds: Medications Generic Name Dose Route Start Last Admin Trade Name Freq PRN Reason Stop Dose Admin Sodium Chloride 1,000 mls @ 125 mls/hr 06/29/17 08:30 06/29/17 09:00 Normal Saline IV 125 mls/hr STAT REYNA Administration Discontinued Medications Generic Name Dose Route Start Last Admin Trade Name Freq PRN Reason Stop Dose Admin Albuterol/Ipratropium 3 ml 06/29/17 09:06 06/29/17 09:27 Duoneb 3.0-0.5 Mg/3 Ml NEB 06/29/17 09:07 Not Given ONETIME ONE Diazepam 5 mg 06/29/17 09:47 06/29/17 09:49 Valium IVPUSH 06/29/17 09:48 5 mg ONETIME ONE Administration Piperacillin Sod/Tazobactam 50 mls @ 100 mls/hr 06/29/17 08:51 06/29/17 09:26 Sod 3.375 gm/ Sodium Chloride IV 06/29/17 09:20 100 mls/hr ONETIME ONE Administration Vancomycin HCl 1 gm/ Sodium 250 mls @ 250 mls/hr 06/29/17 09:31 06/29/17 09: 55 Chloride IV 06/29/17 10:30 250 mls/hr ONETIME ONE Administration Lorazepam 0.5 mg 06/29/17 09:27 06/29/17 09:33 Ativan IVPUSH 06/29/17 09:28 0.5 mg ONETIME ONE Administration Methylprednisolone Sodium Succinate 125 mg 06/29/17 09:06 06/29/17 09:25 Solu-Medrol IVPUSH 06/29/17 09:07 125 mg ONETIME ONE Administration Departure - Departure Time of Disposition: 10:52 Disposition: DC/Tfer to Hospice - Home 50 Condition: Poor Clinical Impression: Hypotension, Hypoxia - Discharge Information Referrals: PCP,None [Primary Care Provider] - Additional Instructions: Further orders pending hospice - My Orders Last 24 Hours: My Active Orders 06/29/17 08:26 UA W/MICROSCOPIC [URIN] Stat 06/29/17 08:30 Sodium Chloride 0.9% [Normal Saline] 1,000 ml IV STAT 06/29/17 08:51 Blood Culture x2 Reflex Set [OM.PC] Stat 06/29/17 09:05 CULTURE BLOOD [BC] Stat 06/29/17 09:06 RT Aerosol Therapy [RC] ASDIRECTED 06/29/17 09:18 CULTURE BLOOD [BC] Stat - Assessment/Plan Last 24 Hours: My Active Orders 06/29/17 08:26 UA W/MICROSCOPIC [URIN] Stat 06/29/17 08:30 Sodium Chloride 0.9% [Normal Saline] 1,000 ml IV STAT 06/29/17 08:51 Blood Culture x2 Reflex Set [OM.PC] Stat 06/29/17 09:05 CULTURE BLOOD [BC] Stat 06/29/17 09:06 RT Aerosol Therapy [RC] ASDIRECTED 06/29/17 09:18 CULTURE BLOOD [BC] Stat
[2017-06-29] MEDS ORDERED: Sodium Chloride 0.9% 1,000 ML IV SCH (08:30)
[2017-06-29] MEDS ORDERED: Piperacillin/Tazobactam 3.375 GM in Sodium Chloride 0.9% 50 ML IV ONE (08:51)
[2017-06-29] MEDS ORDERED: Albuterol/Ipratropium 3.0-0.5 MG/3 ML Neb Soln NEB ONE (09:06)
[2017-06-29] MEDS ORDERED: methylPREDNISolone Sodium Succinate 125 MG/2 ML SDV IVPUSH ONE (09:06)
[2017-06-29 09:24] LABS: CHLORIDE,CL 88 mmol/L (98-110); SODIUM,NA 128 mmol/L (136-146)
--- NOTE | 2017-06-29 09:26 | CR ---
EXAMINATION: Portable chest radiograph. HISTORY: Shortness of breath. FINDINGS: The trachea is midline. The cardiomediastinal silhouette is within normal limits. Increased hazy opac ities within the lungs bilaterally, left greater than right. No pleural effusion or pneumothorax. The re is a left-sided michael catheter noted. Osseous structures appear unremarkable. IMPRESSION: 1. Mildly increased hazy pulmonary opacities bilaterally. Patient has known pulmonary metastatic dise ase, an overlying infectious process is not excluded.
[2017-06-29] MEDS ORDERED: LORazepam 2 MG/ML SDV IVPUSH ONE (09:27)
[2017-06-29 11:16] VITALS: BP 93/62
[2017-06-29] MEDS ORDERED: Morphine 4 MG/ML Syringe IVPUSH ONE (11:23)
--- NOTE | 2017-06-29 14:22 | PCM.SN ---
- Free Text/Narrative Note: Patient with end stage metastatic rectal cancer diagnosed 4 years ago presented to [facility] with respiratory distress that started in the morning. Patient supposed to be admitted on the floor for comfort care and placed to hospice. Soon after the decision to admit patient she . No respiratory movements , pupils fixed and dilated , no heart beats. Patient was pronounced at 11.31am
== END 2017-06-29 13:10 | disposition home or self-care (01) ==
LOC: MW.ED 08:24 → MW.MS 11:08 → UNDOADMIN 11:08 → MW.MS 11:08 → UNDODISIN 13:10
PROVIDERS: ADMIT Internal Medicine; ATTEND Internal Medicine
DX: R06.03 Acute respiratory distress (principal); C20 Malignant neoplasm of rectum; C78.02 Secondary malignant neoplasm of left lung; C78.01 Secondary malignant neoplasm of right lung; C79.51 Secondary malignant neoplasm of bone; C79.89 Secondary malignant neoplasm of other specified sites; E87.1 Hypo-osmolality and hyponatremia; R53.1 Weakness; R09.02 Hypoxemia; G89.3 Neoplasm related pain (acute) (chronic); I95.9 Hypotension, unspecified; I10 Essential (primary) hypertension; F41.9 Anxiety disorder, unspecified; Z79.899 Other long term (current) drug therapy; Z88.8 Allergy status to other drugs, medicaments and biological substances; Z51.5 Encounter for palliative care; K21.9 Gastro-esophageal reflux disease without esophagitis
CPT/HCPCS: 36415; 71010; 80053; 82962; 83605; 85025; 87040; 87077; 87186; 87804; 96365; 96367; 96375; 99291; 99292; J2060; J2543; J2930; J3360; J3370; J7040; J7050; 99284